=== PATIENT | male | born 1960 | race Caucasian/White ===

== ENCOUNTER → 2016-10-22 | Outpatient (CLI) | payer MEDICAID | LOC: RAD 08:28 | PROVIDERS: ATTEND Nurse Practitioner | DX: M54.2 Cervicalgia (principal); M54.5 Low back pain; M47.896 Other spondylosis, lumbar region; M47.892 Other spondylosis, cervical region | CPT/HCPCS: 72050; 72110 ==

== ENCOUNTER → 2018-03-25 | Outpatient (CLI) | payer MEDICAID ==
--- NOTE | 2018-03-25 16:01 | RADIOLOGY REPORT (SQ) ---
EXAM DESCRIPTION: VENOUS BILATERAL LOWER COMPLETED DATE/TIME: 03/25/2018 3:50 pm REASON FOR STUDY: BLE SWELLLING M79.89 OTHER SPECIFIED SOFT TISSUE DISORDERS COMPARISON: None. TECHNIQUE: Dynamic and static powers scale and color images acquired of both lower extremity venous sy stems. Selected spectral images acquired with additional compression and augmentation maneuvers. Imag es stored on PACS. LIMITATIONS: None. FINDINGS: RIGHT LEG COMMON FEMORAL AND FEMORAL: Normal phasicity, compression and augmentation. No visualized echogenic m aterial on powers scale. No defects on color images. POPLITEAL: Normal compression and augmentation. No visualized echogenic material on powers scale. No de fects on color images. CALF VESSELS: Normal compression and augmentation. No visualized echogenic material on powers scale. No defects on color image. GSV AND SSV: Normal compression. No visualized echogenic material on powers scale. No defects on color images. ANY DEEP VENOUS INSUFFICIENCY: Not evaluated. ANY EVIDENCE OF POPLITEAL CYST: No. OTHER: No other significant finding. LEFT LEG COMMON FEMORAL AND FEMORAL: Normal phasicity, compression and augmentation. No visualized echogenic m aterial on powers scale. No defects on color images. POPLITEAL: Normal compression and augmentation. No visualized echogenic material on powers scale. No de fects on color images. CALF VESSELS: Normal compression and augmentation. No visualized echogenic material on powers scale. No defects on color images. GSV AND SSV: Normal compression. No visualized echogenic material on powers scale. No defects on color images. ANY DEEP VENOUS INSUFFICIENCY: Not evaluated. ANY EVIDENCE POPLITEAL CYST: No. OTHER: No other significant finding. IMPRESSION: 1. NO EVIDENCE DVT OR SVT IN EITHER LEG. TECHNICAL DOCUMENTATION: JOB ID: [id number] [employer]- All Rights Reserved Reading location - IP/workstation name: [email or web address]
== END ==
LOC: SP 14:05
PROVIDERS: ATTEND Nurse Practitioner Family
DX: M79.89 Other specified soft tissue disorders (principal)
CPT/HCPCS: 93970